=== PATIENT | female | born 2000 | race Caucasian/White ===

== ENCOUNTER 2023-12-04 19:56 | Inpatient (IN) | payer MEDICAID, SELFPAY ==
[~2023-12-04] VITALS: Ht 157.5 cm; Wt 47.1 kg
[2023-12-04] MEDS: NS 1,000 ML IV ONE (20:45)
[2023-12-04 20:52] LABS: VENOUS BASE EXCESS -28.5 (-2.0-2.0); VENOUS HCO3 3.2 MMOL/L (23.0-27.0); VENOUS O2 SATURATION 95.1 % (60.0-80.0); VENOUS PARTIAL PRESSURE CO2 16.5 mmHg (38.0-50.0); VENOUS PARTIAL PRESSURE O2 86.9 mmHg (30.0-50.0); VENOUS PH 6.903 UNITS (7.330-7.430); VENOUS STANDARD HCO3 6.1 MMOL/L; VENOUS TOTAL CO2 3.7 MMOL/L (24.0-28.0)
[2023-12-04 21:14] LABS: BASO # 0.1 10^3/uL (0.0-0.2); BASO % 0.6 % (0.0-1.0); EOS % 0.1 % (0.0-3.0); HEMATOCRIT 42.2 % (36.0-47.0); HEMOGLOBIN 14.3 g/dl (12.0-15.5); LYMPH # 1.1 10^3/uL (1.5-5.0); LYMPH % 6.2 % (24.0-44.0); MEAN CORPUSCULAR HEMOGLOBIN 29.2 pg (27.0-33.0); MEAN CORPUSCULAR HGB CONC 33.9 g/dl (32.0-36.5); MEAN CORPUSCULAR VOLUME 86.1 fl (80.0-96.0); MONO % 5.4 % (2.0-8.0); NEUTROPHILS # 14.9 10^3/uL (1.5-8.5); NEUTROPHILS % 83.1 % (36.0-66.0); PLATELET COUNT, AUTOMATED 337 10^3/uL (150-450)
[2023-12-04 21:27] LABS: LIPASE 133 U/L (12-53)
[2023-12-04 21:36] LABS: RSV AMPLIFICATION NEGATIVE (NEGATIVE)
[2023-12-04 22:00] LABS: HEMOGLOBIN A1c 12.2 % (4.0-6.0)
[2023-12-04 22:06] LABS: HCG, SERUM QUALITATIVE NEGATIVE (NEGATIVE)
[2023-12-04] MEDS: HumuLIN R (REGULAR) INSULIN (NovoLIN R) **100U/ML** PER UNIT IV ONE (22:07)
[2023-12-04 22:09] LABS: ACETONE/KETONE > 4.50 MMOL/L (0.02-0.27); ALBUMIN 3.7 G/DL (3.2-5.2); ALKALINE PHOSPHATASE 113 U/L (46-116); ALT/SGPT < 9 U/L (7.0-40); AST/SGOT < 8 U/L (<34); BILIRUBIN,DIRECT < 0.1 MG/DL (<0.4); BILIRUBIN,TOTAL 0.3 MG/DL (0.3-1.2); BLOOD UREA NITROGEN 10 MG/DL (9-23); CALCIUM LEVEL 9.4 MG/DL (8.5-10.1); CARBON DIOXIDE LEVEL < 10.0 MMOL/L (20-31); CHLORIDE LEVEL 105 MMOL/L (98-107); CREATININE FOR GFR 0.42 MG/DL (0.55-1.30); GLOMERULAR FILTRATION RATE > 60.0 (>60); GLUCOSE, FASTING 390 MG/DL (60-100); MAGNESIUM LEVEL 2.1 MG/DL (1.8-2.4); POTASSIUM SERUM 4.5 MMOL/L (3.5-5.1); SODIUM LEVEL 133 MMOL/L (136-145); TOTAL PROTEIN 7.5 G/DL (5.7-8.2)
[2023-12-04] MEDS ORDERED: INSULIN IV RATE CHANGE DOCUMENTATION ML/HR XX SCH (22:15)
[2023-12-04] MEDS ORDERED: ISOVUE-370 76% 100ML VIAL As Ordered ONE (22:16)
[2023-12-04] MEDS: INSULIN REGULAR IN 0.9 % NACL 100 UNIT in IV 1 EA IV SCH (22:50)
[2023-12-04 22:53] LABS: APPEARANCE, URINE CLEAR (CLEAR); BACTERIA, URINE AUTO NEGATIVE (NEGATIVE); BILIRUBIN, URINE AUTO NEGATIVE (NEGATIVE); BLOOD, URINE BLOOD 1+ (NEGATIVE); COLOR, URINE STRAW (YELLOW); GLUCOSE, URINE (UA) AUTO 3+ mg/dL (NEGATIVE); KETONE, URINE AUTO 2+ mg/dL (NEGATIVE); LEUKOCYTE ESTERASE, URINE AUTO NEGATIVE (NEGATIVE); MUCUS, URINE SMALL (NEGATIVE); NITRITE, URINE AUTO NEGATIVE (NEGATIVE); PROTEIN, URINE AUTO 2+ mg/dL (NEGATIVE); RBC, URINE AUTO 0 /HPF (0-3); SPECIFIC GRAVITY URINE AUTO 1.018 (1.002-1.035); SQUAMOUS EPITHELIAL CELL UR AU 0 /HPF (0-6); UROBILINOGEN, URINE AUTO 0.2 mg/dL (0.0-2.0); WBC, URINE AUTO 0 /HPF (0-3)
[2023-12-04] MEDS: SODIUM BICARBONATE 8.4% INJ 50ML SYRINGE IV STA (23:24)
[2023-12-04] MEDS ORDERED: MED REC CURRENTLY UNOBTAINABLE XX SCH (23:35)
[2023-12-05 00:06] LABS: VENOUS BASE EXCESS -26.3 (-2.0-2.0); VENOUS HCO3 3.9 MMOL/L (23.0-27.0); VENOUS O2 SATURATION 97.9 % (60.0-80.0); VENOUS PARTIAL PRESSURE CO2 17.1 mmHg (38.0-50.0); VENOUS PARTIAL PRESSURE O2 116.1 mmHg (30.0-50.0); VENOUS PH 6.976 UNITS (7.330-7.430); VENOUS STANDARD HCO3 7.1 MMOL/L; VENOUS TOTAL CO2 4.4 MMOL/L (24.0-28.0)
[2023-12-05] MEDS: D5W/0.45% SODIUM CHLORIDE 1,000 ML IV SCH (00:15)
[2023-12-05 00:22] LABS: BLOOD UREA NITROGEN 9 MG/DL (9-23); CALCIUM LEVEL 8.6 MG/DL (8.5-10.1); CARBON DIOXIDE LEVEL < 10.0 MMOL/L (20-31); CHLORIDE LEVEL 107 MMOL/L (98-107); CREATININE FOR GFR 0.42 MG/DL (0.55-1.30); GLOMERULAR FILTRATION RATE > 60.0 (>60); GLUCOSE, FASTING 277 MG/DL (60-100); POTASSIUM SERUM 4.1 MMOL/L (3.5-5.1); SODIUM LEVEL 135 MMOL/L (136-145)
[2023-12-05] MEDS ORDERED: INSULIN REGULAR IN 0.9 % NACL 100 UNIT in IV 1 EA IV SCH (01:25)
[2023-12-05] MEDS ORDERED: ALBUTEROL SULFATE 2.5MG/0.5ML INH NEB SOLN NEB PRN (01:25)
[2023-12-05] MEDS: NS 1,000 ML IV ONE ×2 (02:21→02:28)
[2023-12-05] MEDS: INSULIN IV RATE CHANGE DOCUMENTATION ML/HR XX SCH (02:24)
[2023-12-05] MEDS: PIPERACILLIN/TAZOBACTAM SOD 3.375 GM in D5W MINI-BAG PLUS 50 ML IV SCH (02:29)
[2023-12-05] MEDS: SODIUM BICARBONATE 8.4% INJ 50ML SYRINGE IV ONE (02:29)
[2023-12-05 02:43] LABS: BLOOD UREA NITROGEN 7 MG/DL (9-23); CARBON DIOXIDE LEVEL < 10.0 MMOL/L (20-31); CHLORIDE LEVEL 108 MMOL/L (98-107); CREATININE FOR GFR 0.41 MG/DL (0.55-1.30); GLOMERULAR FILTRATION RATE > 60.0 (>60); GLUCOSE, FASTING 259 MG/DL (60-100); POTASSIUM SERUM 3.5 MMOL/L (3.5-5.1); SODIUM LEVEL 134 MMOL/L (136-145)
[2023-12-05 02:45] VITALS: BP 116/88; TEMP 98.4; O2SAT 100
[2023-12-05] MEDS: KCL 10MEQ/100ML SWI (KRUN) 10 MEQ in IV 1 EA IV ONE (02:49)
[2023-12-05 03:00] VITALS: BP 144/90; O2SAT 100
[2023-12-05 04:00] VITALS: BP 148/86; O2SAT 100
[2023-12-05 04:16] LABS: BLOOD UREA NITROGEN 7 MG/DL (9-23); CALCIUM LEVEL 7.7 MG/DL (8.5-10.1); CARBON DIOXIDE LEVEL < 10.0 MMOL/L (20-31); CHLORIDE LEVEL 115 MMOL/L (98-107); CREATININE FOR GFR 0.44 MG/DL (0.55-1.30); GLOMERULAR FILTRATION RATE > 60.0 (>60); GLUCOSE, FASTING 185 MG/DL (60-100); PHOSPHORUS LEVEL 0.8 MG/DL (2.5-4.9); POTASSIUM SERUM 3.3 MMOL/L (3.5-5.1); SODIUM LEVEL 141 MMOL/L (136-145)
[2023-12-05] MEDS: POTASSIUM PHOSPHATE INJ 15 MMOL in D5W 250 ML IV ONE (04:23)
[2023-12-05] MEDS ORDERED: PANTOPRAZOLE 40MG VIAL IV SCH (09:00)
[2023-12-06] MEDS ORDERED: BUPR150T12 PO (01:57)
[2023-12-06] MEDS ORDERED: INSUHUMDS SC (01:57)
[2023-12-06] MEDS ORDERED: HYDR50TA70 PO (01:57)
[2023-12-06] MEDS ORDERED: TRAZ1TAB10 PO (01:57)
== END 2023-12-05 06:19 | disposition left against medical advice (07) | DRG 420 ==
LOC: M ED 19:56 → EDBD 19:56 → M ED INP 12-05 00:15 → ENRESERV 12-05 00:54 → M ICU 12-05 02:27
PROVIDERS: ADMIT Internal Medicine Pulmonary Disease; ATTEND Internal Medicine
DX: E10.10 Type 1 diabetes mellitus with ketoacidosis without coma (principal); J98.2 Interstitial emphysema; E83.39 Other disorders of phosphorus metabolism; R06.02 Shortness of breath

== ENCOUNTER 2023-12-05 13:08 | Inpatient (IN) | payer MEDICAID, SELFPAY ==
[2023-12-05] VITALS (7 sets, daily range): BP systolic 130–146; BP diastolic 61–81; TEMP 98–100.3; O2SAT 99–100
[~2023-12-05] VITALS: Ht 157.5 cm; Wt 48.4 kg
[2023-12-05 14:39] LABS: VENOUS BASE EXCESS -29.5 (-2.0-2.0); VENOUS HCO3 3.2 MMOL/L (23.0-27.0); VENOUS O2 SATURATION 87.3 % (60.0-80.0); VENOUS PARTIAL PRESSURE CO2 18.2 mmHg (38.0-50.0); VENOUS PARTIAL PRESSURE O2 54.5 mmHg (30.0-50.0); VENOUS PH 6.862 UNITS (7.330-7.430); VENOUS STANDARD HCO3 5.5 MMOL/L; VENOUS TOTAL CO2 3.8 MMOL/L (24.0-28.0)
[2023-12-05 14:46] LABS: BASO # 0.1 10^3/uL (0.0-0.2); BASO % 0.4 % (0.0-1.0); HEMATOCRIT 42.8 % (36.0-47.0); LYMPH # 1.1 10^3/uL (1.5-5.0); LYMPH % 5.2 % (24.0-44.0); MEAN CORPUSCULAR HEMOGLOBIN 28.6 pg (27.0-33.0); MEAN CORPUSCULAR HGB CONC 32.7 g/dl (32.0-36.5); MEAN CORPUSCULAR VOLUME 87.5 fl (80.0-96.0); MONO # 1.5 10^3/uL (0.0-0.8); MONO % 6.8 % (2.0-8.0); NEUTROPHILS % 84.6 % (36.0-66.0); PLATELET COUNT, AUTOMATED 332 10^3/uL (150-450); RED BLOOD COUNT 4.89 10^6/uL (4.00-5.40); WHITE BLOOD COUNT 21.3 10^3/uL (4.0-10.0)
[2023-12-05] MEDS: NS 1,000 ML IV ONE (14:55)
[2023-12-05 15:13] LABS: RSV AMPLIFICATION NEGATIVE (NEGATIVE)
[2023-12-05 15:16] LABS: CPK CREATINE PHOSPHOKINASE 118 U/L (34-145)
[2023-12-05 15:23] LABS: ACETONE/KETONE > 4.50 MMOL/L (0.02-0.27); ALBUMIN 3.8 G/DL (3.2-5.2); ALKALINE PHOSPHATASE 114 U/L (46-116); ALT/SGPT 12 U/L (7.0-40); AST/SGOT < 8 U/L (<34); BILIRUBIN,DIRECT < 0.1 MG/DL (<0.4); BILIRUBIN,TOTAL 0.3 MG/DL (0.3-1.2); BLOOD UREA NITROGEN 6 MG/DL (9-23); CALCIUM LEVEL 8.4 MG/DL (8.5-10.1); CARBON DIOXIDE LEVEL < 10.0 MMOL/L (20-31); CHLORIDE LEVEL 107 MMOL/L (98-107); CK-MB VALUE MASS < 1.0 NG/ML (<3.6); CREATININE FOR GFR 0.42 MG/DL (0.55-1.30); GLOMERULAR FILTRATION RATE > 60.0 (>60); GLUCOSE, FASTING 350 MG/DL (60-100); MB/CK RELATIVE INDEX 0.84 (< OR =4); PHOSPHORUS LEVEL 3.2 MG/DL (2.5-4.9); SODIUM LEVEL 134 MMOL/L (136-145); TOTAL PROTEIN 7.5 G/DL (5.7-8.2)
[2023-12-05] MEDS: PIPERACILLIN/TAZOBACTAM SOD 4.5 GM in D5W MINI-BAG PLUS 50 ML IV ONE (15:24)
[2023-12-05] MEDS ORDERED: INSULIN IV RATE CHANGE DOCUMENTATION ML/HR XX SCH (15:35)
[2023-12-05] MEDS: INSULIN REGULAR IN 0.9 % NACL 100 UNIT in IV 1 EA IV SCH ×2 (15:53→18:44)
[2023-12-05] MEDS: HumuLIN R (REGULAR) INSULIN (NovoLIN R) **100U/ML** PER UNIT IV ONE (15:54)
[2023-12-05] MEDS: SODIUM BICARBONATE 8.4% INJ 50ML SYRINGE IV STA (15:54)
[2023-12-05] MEDS: PANTOPRAZOLE 40MG VIAL IV SCH (17:00)
[2023-12-05] MEDS: LR 1,000 ML IV ONE (17:00)
[2023-12-05] MEDS: KCL 40MEQ IN D5/0.45NS 1000ML 1,000 ML IV SCH ×2 (18:17→23:49)
[2023-12-05] MEDS: MAG SULF 1GM/100ML (MAG RUN) 1 GM in IV 1 EA IV ONE (18:17)
[2023-12-05 18:31] LABS: VENOUS BASE EXCESS -26.3 (-2.0-2.0); VENOUS HCO3 3.7 MMOL/L (23.0-27.0); VENOUS O2 SATURATION 99.4 % (60.0-80.0); VENOUS PARTIAL PRESSURE CO2 16.1 mmHg (38.0-50.0); VENOUS PARTIAL PRESSURE O2 175.3 mmHg (30.0-50.0); VENOUS PH 6.982 UNITS (7.330-7.430); VENOUS STANDARD HCO3 6.9 MMOL/L; VENOUS TOTAL CO2 4.2 MMOL/L (24.0-28.0)
[2023-12-05 19:03] LABS: BLOOD UREA NITROGEN 9 MG/DL (9-23); CALCIUM LEVEL 7.9 MG/DL (8.5-10.1); CARBON DIOXIDE LEVEL < 10.0 MMOL/L (20-31); CHLORIDE LEVEL 112 MMOL/L (98-107); CREATININE FOR GFR 0.42 MG/DL (0.55-1.30); GLOMERULAR FILTRATION RATE > 60.0 (>60); GLUCOSE, FASTING 266 MG/DL (60-100); MAGNESIUM LEVEL 1.7 MG/DL (1.8-2.4); POTASSIUM SERUM 3.1 MMOL/L (3.5-5.1); SODIUM LEVEL 138 MMOL/L (136-145)
[2023-12-05] MEDS ORDERED: POTASSIUM CHLORIDE 10MEQ SR TABLET PO ONE (20:45)
[2023-12-05] MEDS: POTASSIUM CHLORIDE 10MEQ SR TABLET PO ONE ×2 (20:56→22:15)
[2023-12-05] MEDS: PIPERACILLIN/TAZOBACTAM SOD 3.375 GM in D5W MINI-BAG PLUS 50 ML IV SCH (20:56)
[2023-12-05] MEDS: MAG SULF 1GM/100ML (MAG RUN) 1 GM in IV 1 EA IV SCH (22:15)
[2023-12-05 22:42] LABS: BLOOD UREA NITROGEN 6 MG/DL (9-23); CARBON DIOXIDE LEVEL < 10.0 MMOL/L (20-31); CHLORIDE LEVEL 110 MMOL/L (98-107); CREATININE FOR GFR 0.39 MG/DL (0.55-1.30); GLOMERULAR FILTRATION RATE > 60.0 (>60); GLUCOSE, FASTING 295 MG/DL (60-100); MAGNESIUM LEVEL 2.1 MG/DL (1.8-2.4); PHOSPHORUS LEVEL 1.3 MG/DL (2.5-4.9); POTASSIUM SERUM 3.4 MMOL/L (3.5-5.1); SODIUM LEVEL 135 MMOL/L (136-145)
[2023-12-05] MEDS: INSULIN IV RATE CHANGE DOCUMENTATION ML/HR XX SCH (23:09)
[2023-12-06] VITALS (15 sets, daily range): BP systolic 112–153; BP diastolic 69–92; TEMP 98.7–99.5; O2SAT 98–100
[2023-12-06] MEDS: POTASSIUM PHOSPHATE INJ 20 MMOL in D5W 250 ML IV ONE (01:14)
[2023-12-06] MEDS ORDERED: INSUHUMDS SC (01:57)
[2023-12-06] MEDS ORDERED: TRAZ1TAB10 PO (01:57)
[2023-12-06] MEDS ORDERED: HYDR50TA70 PO (01:57)
[2023-12-06] MEDS ORDERED: BUPR150T12 PO (01:57)
[2023-12-06] MEDS ORDERED: HOME MED LIST COMPLETE! XX SCH (02:00)
[2023-12-06 02:51] LABS: BLOOD UREA NITROGEN < 5 MG/DL (9-23); CALCIUM LEVEL 8.6 MG/DL (8.5-10.1); CARBON DIOXIDE LEVEL < 10.0 MMOL/L (20-31); CHLORIDE LEVEL 110 MMOL/L (98-107); CREATININE FOR GFR 0.43 MG/DL (0.55-1.30); GLOMERULAR FILTRATION RATE > 60.0 (>60); GLUCOSE, FASTING 297 MG/DL (60-100); MAGNESIUM LEVEL 2.6 MG/DL (1.8-2.4); PHOSPHORUS LEVEL 0.5 MG/DL (2.5-4.9); POTASSIUM SERUM 2.9 MMOL/L (3.5-5.1); SODIUM LEVEL 135 MMOL/L (136-145)
[2023-12-06] MEDS: KCL 40MEQ in NS 1000ML 1,000 ML IV SCH (04:14)
[2023-12-06] MEDS: KCL 10MEQ/100ML SWI (KRUN) 10 MEQ in IV 1 EA IV SCH (04:15)
[2023-12-06] MEDS: ACETAMINOPHEN TAB 650MG DOSE (2X325MG) PO PRN (04:27)
[2023-12-06] MEDS: NEUTRA-PHOS 1.5 GM PACKET PO ONE (04:28)
[2023-12-06] MEDS: POTASSIUM CHLORIDE 10MEQ SR TABLET PO ONE (06:00)
[2023-12-06 06:41] LABS: BLOOD UREA NITROGEN < 5 MG/DL (9-23); CALCIUM LEVEL 7.5 MG/DL (8.5-10.1); CARBON DIOXIDE LEVEL < 10.0 MMOL/L (20-31); CHLORIDE LEVEL 110 MMOL/L (98-107); GLOMERULAR FILTRATION RATE > 60.0 (>60); GLUCOSE, FASTING 286 MG/DL (60-100); MAGNESIUM LEVEL 2.2 MG/DL (1.8-2.4); PHOSPHORUS LEVEL 2.3 MG/DL (2.5-4.9); SODIUM LEVEL 135 MMOL/L (136-145)
[2023-12-06 08:18] LABS: VENOUS BASE EXCESS -23.6 (-2.0-2.0); VENOUS HCO3 4.7 MMOL/L (23.0-27.0); VENOUS O2 SATURATION 99.3 % (60.0-80.0); VENOUS PARTIAL PRESSURE CO2 16.8 mmHg (38.0-50.0); VENOUS PARTIAL PRESSURE O2 248.3 mmHg (30.0-50.0); VENOUS PH 7.067 UNITS (7.330-7.430); VENOUS STANDARD HCO3 8.2 MMOL/L; VENOUS TOTAL CO2 5.2 MMOL/L (24.0-28.0)
[2023-12-06] MEDS: LEVEMIR (INSULIN DETEMIR) 1 UNITS/0.01ML SC SCH (08:24)
[2023-12-06] MEDS: ENOXAPARIN 40MG/0.4ML SYRINGE (J1650 PER 10MG) SC SCH (08:25)
[2023-12-06 09:05] LABS: BLOOD UREA NITROGEN < 5 MG/DL (9-23); CALCIUM LEVEL 7.7 MG/DL (8.5-10.1); CARBON DIOXIDE LEVEL < 10.0 MMOL/L (20-31); CHLORIDE LEVEL 110 MMOL/L (98-107); GLOMERULAR FILTRATION RATE > 60.0 (>60); GLUCOSE, FASTING 266 MG/DL (60-100); POTASSIUM SERUM 3.8 MMOL/L (3.5-5.1); SODIUM LEVEL 136 MMOL/L (136-145)
[2023-12-06] MEDS: LR 1,000 ML IV ONE (10:14)
[2023-12-06 10:50] LABS: BASO % 0.2 % (0.0-1.0); EOS % 0.1 % (0.0-3.0); HEMATOCRIT 39.2 % (36.0-47.0); HEMOGLOBIN 13.2 g/dl (12.0-15.5); LYMPH # 0.7 10^3/uL (1.5-5.0); LYMPH % 7.2 % (24.0-44.0); MEAN CORPUSCULAR HGB CONC 33.7 g/dl (32.0-36.5); MEAN CORPUSCULAR VOLUME 86.2 fl (80.0-96.0); MONO # 0.7 10^3/uL (0.0-0.8); MONO % 7.1 % (2.0-8.0); RED BLOOD COUNT 4.55 10^6/uL (4.00-5.40); WHITE BLOOD COUNT 9.5 10^3/uL (4.0-10.0)
[2023-12-06] MEDS ORDERED: POTASSIUM CHLORIDE INJ 20 MEQ in D5W/LR 1,000 ML IV SCH (11:00)
[2023-12-06] MEDS: SODIUM PHOSPHATE INJ 30 MMOL in D5W 500 ML IV ONE ×2 (11:52→23:18)
[2023-12-06] MEDS: LEVALBUTEROL 1.25MG 0.5ML CONCENTRATE NEB INH PRN (12:52)
[2023-12-06] MEDS: KCL 20MEQ IN 100ML SWI (KRUN) 20 MEQ in IV 1 EA IV SCH ×2 (13:09→20:18)
[2023-12-06] MEDS ORDERED: LEVALBUTEROL HFA 45MCG/ACT 15GM INHALER INH PRN (14:10)
[2023-12-06] MEDS: ACETAMINOPHEN *IV* 1,000 MG in IV 1 EA IV ONE (16:24)
[2023-12-06] MEDS: SODIUM BICARBONATE 150 MEQ in D5W 1,000 ML IV SCH (16:53)
[2023-12-06 18:17] LABS: BLOOD UREA NITROGEN 7 MG/DL (9-23); CALCIUM LEVEL 7.3 MG/DL (8.5-10.1); CARBON DIOXIDE LEVEL < 10.0 MMOL/L (20-31); CHLORIDE LEVEL 109 MMOL/L (98-107); CREATININE FOR GFR 0.35 MG/DL (0.55-1.30); GLOMERULAR FILTRATION RATE > 60.0 (>60); GLUCOSE, FASTING 284 MG/DL (60-100); MAGNESIUM LEVEL 1.8 MG/DL (1.8-2.4); PHOSPHORUS LEVEL 1.8 MG/DL (2.5-4.9); POTASSIUM SERUM 3.1 MMOL/L (3.5-5.1); SODIUM LEVEL 133 MMOL/L (136-145)
[2023-12-06 23:02] LABS: BLOOD UREA NITROGEN 6 MG/DL (9-23); CARBON DIOXIDE LEVEL 15 MMOL/L (20-31); CHLORIDE LEVEL 108 MMOL/L (98-107); CREATININE FOR GFR 0.31 MG/DL (0.55-1.30); GLOMERULAR FILTRATION RATE > 60.0 (>60); GLUCOSE, FASTING 222 MG/DL (60-100); MAGNESIUM LEVEL 1.7 MG/DL (1.8-2.4); PHOSPHORUS LEVEL 0.6 MG/DL (2.5-4.9); POTASSIUM SERUM 3.3 MMOL/L (3.5-5.1); SODIUM LEVEL 135 MMOL/L (136-145)
[2023-12-07] VITALS (10 sets, daily range): BP systolic 107–140; BP diastolic 67–89; TEMP 98.6–99.1; O2SAT 100
[2023-12-07] MEDS ORDERED: PROMETHAZINE 25 MG TAB PO ONE
[2023-12-07] MEDS: KCL 40MEQ IN D5/0.45NS 1000ML 1,000 ML IV SCH (00:17)
[2023-12-07] MEDS: MAG SULF 1GM/100ML (MAG RUN) 1 GM in IV 1 EA IV ONE ×2 (01:53→03:58)
[2023-12-07 02:07] LABS: HEMATOCRIT 34.3 % (36.0-47.0); HEMOGLOBIN 12.2 g/dl (12.0-15.5); MEAN CORPUSCULAR HEMOGLOBIN 28.7 pg (27.0-33.0); MEAN CORPUSCULAR HGB CONC 35.6 g/dl (32.0-36.5); MEAN CORPUSCULAR VOLUME 80.7 fl (80.0-96.0); PLATELET COUNT, AUTOMATED 194 10^3/uL (150-450); RED BLOOD COUNT 4.25 10^6/uL (4.00-5.40)
[2023-12-07] MEDS ORDERED: ISOVUE-370 76% 100ML VIAL As Ordered ONE (02:15)
[2023-12-07 02:56] LABS: ALBUMIN 2.5 G/DL (3.2-5.2); ALKALINE PHOSPHATASE 74 U/L (46-116); ALT/SGPT < 9 U/L (7.0-40); AST/SGOT < 8 U/L (<34); BILIRUBIN,TOTAL 0.5 MG/DL (0.3-1.2); BLOOD UREA NITROGEN < 5 MG/DL (9-23); CALCIUM LEVEL 6.6 MG/DL (8.5-10.1); CARBON DIOXIDE LEVEL 17 MMOL/L (20-31); CHLORIDE LEVEL 107 MMOL/L (98-107); CREATININE FOR GFR 0.32 MG/DL (0.55-1.30); GLOMERULAR FILTRATION RATE > 60.0 (>60); GLUCOSE, FASTING 240 MG/DL (60-100); MAGNESIUM LEVEL 1.6 MG/DL (1.8-2.4); PHOSPHORUS LEVEL 2.3 MG/DL (2.5-4.9); POTASSIUM SERUM 3.4 MMOL/L (3.5-5.1); SODIUM LEVEL 134 MMOL/L (136-145); TOTAL PROTEIN 5.4 G/DL (5.7-8.2)
[2023-12-07] MEDS: KCL 20MEQ IN 100ML SWI (KRUN) 20 MEQ in IV 1 EA IV SCH (05:10)
[2023-12-07 06:31] LABS: BASO % 0.3 % (0.0-1.0); EOS % 0.9 % (0.0-3.0); HEMATOCRIT 33.5 % (36.0-47.0); HEMOGLOBIN 12.1 g/dl (12.0-15.5); LYMPH # 0.4 10^3/uL (1.5-5.0); LYMPH % 11.5 % (24.0-44.0); MEAN CORPUSCULAR HGB CONC 36.1 g/dl (32.0-36.5); MEAN CORPUSCULAR VOLUME 80.3 fl (80.0-96.0); MONO # 0.3 10^3/uL (0.0-0.8); NEUTROPHILS # 2.6 10^3/uL (1.5-8.5); NEUTROPHILS % 76.4 % (36.0-66.0); PLATELET COUNT, AUTOMATED 186 10^3/uL (150-450); RED BLOOD COUNT 4.17 10^6/uL (4.00-5.40); WHITE BLOOD COUNT 3.4 10^3/uL (4.0-10.0)
[2023-12-07 06:58] LABS: BLOOD UREA NITROGEN < 5 MG/DL (9-23); CARBON DIOXIDE LEVEL 20 MMOL/L (20-31); CHLORIDE LEVEL 104 MMOL/L (98-107); CREATININE FOR GFR 0.32 MG/DL (0.55-1.30); GLOMERULAR FILTRATION RATE > 60.0 (>60); GLUCOSE, FASTING 223 MG/DL (60-100); MAGNESIUM LEVEL 2.4 MG/DL (1.8-2.4); PHOSPHORUS LEVEL 1.5 MG/DL (2.5-4.9); POTASSIUM SERUM 3.1 MMOL/L (3.5-5.1); SODIUM LEVEL 133 MMOL/L (136-145)
[2023-12-07] MEDS: SENNA 8.6 MG TAB (SENOKOT) PO SCH (09:03)
[2023-12-07] MEDS: DOCUSATE SODIUM 100MG CAPSULE PO SCH (09:03)
[2023-12-07 10:46] LABS: BLOOD UREA NITROGEN < 5 MG/DL (9-23); CALCIUM LEVEL 7.1 MG/DL (8.5-10.1); CARBON DIOXIDE LEVEL 20 MMOL/L (20-31); CHLORIDE LEVEL 109 MMOL/L (98-107); GLOMERULAR FILTRATION RATE > 60.0 (>60); GLUCOSE, FASTING 201 MG/DL (60-100); MAGNESIUM LEVEL 2.2 MG/DL (1.8-2.4); PHOSPHORUS LEVEL 1.1 MG/DL (2.5-4.9); POTASSIUM SERUM 3.1 MMOL/L (3.5-5.1); SODIUM LEVEL 135 MMOL/L (136-145)
[2023-12-07] MEDS: SODIUM PHOSPHATE INJ 30 MMOL in D5W 500 ML IV ONE (11:38)
[2023-12-07] MEDS ORDERED: GLUCOSE 4GM CHEW TABLET PO PRN (11:50)
[2023-12-07] MEDS ORDERED: DEXTROSE 50% 50ML SYRINGE IV PRN (11:50)
[2023-12-07] MEDS ORDERED: GLUCAGON INJ 1MG VIAL SC PRN (11:50)
[2023-12-07] MEDS ORDERED: KCL 20MEQ IN 100ML SWI (KRUN) 20 MEQ in IV 1 EA IV ONE ×2 (11:55→12:45)
[2023-12-07] MEDS ORDERED: KCL IV SCH (12:40)
[2023-12-07] MEDS ORDERED: D5W IV SCH (12:40)
[2023-12-07] MEDS ORDERED: SODIUM CHLORIDE IV SCH (12:40)
[2023-12-07] MEDS ORDERED: SWI IV SCH (12:40)
[2023-12-07] MEDS: INSULIN LISPRO (NovoLOG) PER UNIT SC SCH ×3 (13:15→20:15)
[2023-12-07 15:12] LABS: BLOOD UREA NITROGEN < 5 MG/DL (9-23); CARBON DIOXIDE LEVEL 21 MMOL/L (20-31); CHLORIDE LEVEL 106 MMOL/L (98-107); GLOMERULAR FILTRATION RATE > 60.0 (>60); GLUCOSE, FASTING 216 MG/DL (60-100); PHOSPHORUS LEVEL 2.4 MG/DL (2.5-4.9); SODIUM LEVEL 135 MMOL/L (136-145)
[2023-12-07] MEDS: KCL 20MEQ IN 100ML SWI (KRUN) 20 MEQ in IV 1 EA IV ONE (16:58)
[2023-12-07] MEDS: KCL 40MEQ in NS 1000ML 1,000 ML IV SCH (17:00)
[2023-12-07] MEDS: GABAPENTIN 100 MG CAP PO SCH (20:13)
[2023-12-07] MEDS: LEVEMIR (INSULIN DETEMIR) 1 UNITS/0.01ML SC SCH (20:15)
[2023-12-07] MEDS: SENOKOT S TAB PO SCH (20:16)
[2023-12-07 20:57] LABS: BLOOD UREA NITROGEN < 5 MG/DL (9-23); CALCIUM LEVEL 7.5 MG/DL (8.5-10.1); CARBON DIOXIDE LEVEL 23 MMOL/L (20-31); CHLORIDE LEVEL 106 MMOL/L (98-107); CREATININE FOR GFR 0.29 MG/DL (0.55-1.30); GLOMERULAR FILTRATION RATE > 60.0 (>60); GLUCOSE, FASTING 226 MG/DL (60-100); SODIUM LEVEL 137 MMOL/L (136-145)
[2023-12-07] MEDS: PROMETHAZINE 25 MG TAB PO ONE (22:32)
[2023-12-07] MEDS: POTASSIUM CHLORIDE 10% LIQ 20MEQ/15ML UDC PO ONE (22:33)
[2023-12-08 04:00] VITALS: BP 114/73; TEMP 98; O2SAT 100
[2023-12-08 05:07] LABS: EOS % 1.2 % (0.0-3.0); HEMATOCRIT 31.8 % (36.0-47.0); HEMOGLOBIN 11.3 g/dl (12.0-15.5); LYMPH # 1.2 10^3/uL (1.5-5.0); LYMPH % 34.1 % (24.0-44.0); MEAN CORPUSCULAR HEMOGLOBIN 28.5 pg (27.0-33.0); MEAN CORPUSCULAR HGB CONC 35.5 g/dl (32.0-36.5); MEAN CORPUSCULAR VOLUME 80.3 fl (80.0-96.0); MONO # 0.6 10^3/uL (0.0-0.8); MONO % 16.6 % (2.0-8.0); NEUTROPHILS # 1.6 10^3/uL (1.5-8.5); NEUTROPHILS % 47.8 % (36.0-66.0); PLATELET COUNT, AUTOMATED 170 10^3/uL (150-450); RED BLOOD COUNT 3.96 10^6/uL (4.00-5.40); WHITE BLOOD COUNT 3.4 10^3/uL (4.0-10.0)
[2023-12-08 05:33] LABS: BLOOD UREA NITROGEN < 5 MG/DL (9-23); CALCIUM LEVEL 7.1 MG/DL (8.5-10.1); CARBON DIOXIDE LEVEL 25 MMOL/L (20-31); CHLORIDE LEVEL 106 MMOL/L (98-107); GLOMERULAR FILTRATION RATE > 60.0 (>60); GLUCOSE, FASTING 205 MG/DL (60-100); POTASSIUM SERUM 3.7 MMOL/L (3.5-5.1); SODIUM LEVEL 136 MMOL/L (136-145)
[2023-12-08 07:41] VITALS: BP 132/90; TEMP 97.4; O2SAT 100
[2023-12-08] MEDS: POTASSIUM CHLORIDE 10MEQ SR TABLET PO SCH (08:39)
[2023-12-08 11:41] VITALS: BP_SYST 134; BP_SYST 139; BP_DIAS 101; BP_DIAS 88; TEMP 98.5; O2SAT 100
[2023-12-08 15:35] VITALS: BP 123/80; TEMP 98.7; O2SAT 100
[2023-12-08] MEDS: INSULIN LISPRO (NovoLOG) PER UNIT SC SCH (17:12)
[2023-12-08] MEDS: SODIUM PHOSPHATE INJ 20 MMOL in D5W 250 ML IV ONE (17:42)
[2023-12-08 19:48] VITALS: BP 131/92; TEMP 98.8; O2SAT 100
[2023-12-08] MEDS: GABAPENTIN 100 MG CAP PO ONE (21:24)
[2023-12-09] VITALS: BP 120/89; TEMP 98.2; O2SAT 100
[2023-12-09 04:00] VITALS: BP 149/93; TEMP 99.2; O2SAT 100
[2023-12-09 05:58] LABS: BLOOD UREA NITROGEN 5 MG/DL (9-23); CALCIUM LEVEL 8.2 MG/DL (8.5-10.1); CARBON DIOXIDE LEVEL 29 MMOL/L (20-31); CHLORIDE LEVEL 104 MMOL/L (98-107); CREATININE FOR GFR 0.34 MG/DL (0.55-1.30); GLOMERULAR FILTRATION RATE > 60.0 (>60); GLUCOSE, FASTING 259 MG/DL (60-100); MAGNESIUM LEVEL 2.1 MG/DL (1.8-2.4); POTASSIUM SERUM 3.5 MMOL/L (3.5-5.1); SODIUM LEVEL 138 MMOL/L (136-145)
[2023-12-09 08:00] VITALS: BP 129/90; TEMP 98.7; O2SAT 100
[2023-12-09] MEDS ORDERED: MIRA3350 PO (09:17)
[2023-12-09] MEDS ORDERED: NOVOINJ3 SC (09:17)
[2023-12-09] MEDS ORDERED: GABA-1171 PO (09:17)
[2023-12-09] MEDS ORDERED: INSU100I48 SQ (09:17)
[2023-12-09] MEDS ORDERED: GLUC1TES2 XX (09:19)
[2023-12-09] MEDS ORDERED: ALCOPAD25 TOP (09:19)
[2023-12-09] MEDS ORDERED: PEN-308 SC (09:19)
[2023-12-09] MEDS ORDERED: BLOOKIT21 XX (09:19)
[2023-12-09] MEDS ORDERED: LANC30MI XX (09:19)
[2023-12-09] MEDS: LEVEMIR (INSULIN DETEMIR) 1 UNITS/0.01ML SC ONE (09:22)
[2023-12-09] MEDS ORDERED: POTA-151 PO (09:23)
== END 2023-12-09 11:26 | disposition home or self-care (01) | DRG 420 ==
LOC: M ED 13:08 → M ED INP 16:42 → ENRESERV 16:54 → M ICU 17:23
PROVIDERS: ADMIT Internal Medicine Pulmonary Disease; ATTEND Internal Medicine
DX: E10.10 Type 1 diabetes mellitus with ketoacidosis without coma (principal); J98.2 Interstitial emphysema; E10.42 Type 1 diabetes mellitus with diabetic polyneuropathy; E83.39 Other disorders of phosphorus metabolism; F32.A Depression, unspecified; F41.9 Anxiety disorder, unspecified; K59.00 Constipation, unspecified; E87.6 Hypokalemia; Z11.52 Encounter for screening for COVID-19; Z79.4 Long term (current) use of insulin; Z79.899 Other long term (current) drug therapy